=== PATIENT | female | born 1970 | race Two or more races ===

== ENCOUNTER 2023-12-26 17:46 | Emergency (ER) | payer OTHER ==
[~2023-12-26] VITALS: Ht 162.6 cm; Wt 68.0 kg
[2023-12-26] MEDS ORDERED: KETOROLAC TROMETHAMINE 30 MG VIAL IM ONE (20:45)
== END 2023-12-26 22:12 | disposition home or self-care (01) ==
LOC: ER 17:46
DX: M79.632 Pain in left forearm (principal); W22.8XXA Striking against or struck by other objects, initial encounter; Y93.9 Activity, unspecified; Y92.59 Other trade areas as the place of occurrence of the external cause; Y99.9 Unspecified external cause status